=== PATIENT | female | born 1960 | race Caucasian/White ===

== ENCOUNTER → 2017-04-26 | Outpatient (CLI) | payer BC ==
--- NOTE | 2017-04-26 15:02 | Diagnostic Imaging Report ---
EXAMINATION: Ultrasound pelvis. DATE: April 26, 2017. INDICATION: 56-year-old female, history of ovarian cysts. COMPARISON: None. TECHNIQUE: A sonogram of the pelvis was performed utilizing transabdominal and endovaginal approaches assessing cardoso-scale appearance and color Doppler flow. Findings: The uterus measures 6.5 x 4.2 x 3.3 cm. No focal uterine masses are seen. The endometrium measures 0.2 cm in diameter. The right ovary measures 2.0 cm x 1.6 cm x 3.3 cm. The left ovary is not well seen. There is a nearly anechoic right ovarian lesion without internal blood flow measuring 2.2 x 1.2 x 1.6 cm in size which most likely relates to ovarian cyst. There is blood flow to the right ovary. No free pelvic fluid is demonstrated. IMPRESSION: 1. 2.2 cm right ovarian cyst. 2. The left ovary is not well seen. 3. Unremarkable appearance of the uterus. 4. No free pelvic fluid. Dictated by: Dictated on workstation # [id number]
== END ==
LOC: RAD 13:33
PROVIDERS: ATTEND Obstetrics & Gynecology Gynecology
DX: N83.201 Unspecified ovarian cyst, right side (principal)
CPT/HCPCS: 76830; 76856